=== PATIENT | male | born 1970 | race Caucasian/White ===

== ENCOUNTER 2024-02-13 23:20 | Emergency (ER) | payer OTHER, SELFPAY ==
[2024-02-13 23:22] VITALS: BP 160/96
--- NOTE | 2024-02-13 23:49 | ED.GENMED ---
History of Present Illness
General
Chief Complaint: Flank Pain
Source: patient
Time Seen by Provider: 02/13/24 23:35
History of Present Illness
History of Present Illness:
53-year-old male presents to the emergency room complaining of left flank pain. Pain began around 8 PM. It started suddenly without any provocation. Pain worsens at times in waves. Walking around seems to make it better temporarily. No fever.
No urinary frequency or dysuria. Patient did have a kidney stone on the same side a couple years ago. This does remind him of that episode.
Past History
Past History
ED Past Medical History: HTN, NIDDM and Hypothyroidism
ED Past Surgical History: Orthopedic
Social History
Tobacco: Non-smoker
Personal:
Living: with family
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
Phy Exam
Physical Exam
Physical Exam:
General: Awake, Alert, Oriented X3. No acute distress but does appear uncomfortable
Vitals: unremarkable
Head: Atraumatic
Eyes: Pupils equal, EOMI
Throat: Airway intact, no exudates
Neck: Trachea midline
Lungs: Clear and equal b/l
Heart: Regular rate, no murmurs
Abd: Soft, Nontender, No pulsatile mass
Back: Mild left CVA tenderness to percussion
Neuro: Nonfocal
Skin: Warm, dry, no rash
Extremities: pulses equal b/l, no edema
Course
Orders/Labs/Results
Orders:
Orders
02/13/24 23:47
Urinalysis Reflex To Culture Urgent
Date Specimen was Collected: 02/14/24
Time Specimen was Collected: 01:24
0.9% Sodium Chloride 500 ml [Nss] 500 ml IV BOLUS
Ketorolac [Toradol] 15 mg IV NOW STA
02/13/24 23:58
Basic Metabolic Panel Urgent
Complete Blood Count/With Diff Urgent
02/14/24 00:01
CT Abd/pel Without Iv Or Oral Urgent
Reason For Exam: left flank pain
02/14/24 01:27
Urine Microscopic Reflex Cult Urgent
Abnormal Lab Results
02/13/24 02/14/24
23:58 01:27
Abs Immat Gran (auto) 0.1 H 10^3/uL
(0-0.05)
Absolute Neuts (auto) 7.4 H 10^3/uL
(1.4-6.5)
Absolute Monos (auto) 0.8 H 10^3/uL
(0.1-0.6)
Immature Gran % 0.6 H %
(0-0.5)
Lymphocytes % 19.2 L %
(20.5-51.1)
Urine Ketones 2+ A
(Negative)
Ur Occult Blood Reflex Trace A
(Negative)
Urine RBC 3-6 A /HPF
(0-2)
Urine Bacteria (Reflex) Few A
(Negative)
02/13/24 23:58
02/13/24 23:58
Vital Signs
Initial and Last Documented VS:
Initial Vital Signs
Temp Pulse Resp BP Pulse Ox
97.8 F 80 24 160/96 98
02/13/24 23:22 02/13/24 23:22 02/13/24 23:22 02/13/24 23:22 02/13/24 23:22
Last Documented Vital Signs
Temp Pulse Resp BP Pulse Ox
97.8 F 88 17 131/71 98
02/13/24 23:22 02/14/24 00:59 02/14/24 00:59 02/14/24 00:59 02/14/24 00:59
MDM/Problems Addressed
Differential Diagnosis Includes:
UTI, kidney stone, muscle strain
MDM/Problems Addressed:
CT confirms the presence of a 4 mm stone. Urine shows no sign of infection. Patient improved with Toradol. Stable for discharge and follow-up with urology
*Radiology
Radiology exam reviewed: other (Vision report reviewed)
*Pulse Oximetry
Patient hypoxic: no
*Critical Care Note
Total Time (30-74mins, 75-104mins- exclusive of procedures): Not Applicable
ED Attending Note
-
Portions of this chart may have been created with voice recognition software.� Occasional wrong word or��sound alike� substitutions may have occurred due to the inherent limitations of voice recognition software.
Discharge Plan
Departure
Patient Disposition: Home (Routine Discharge)
Date of Disposition: 02/14/24
Time of Disposition: 01:50
Patient with high blood pressure during this ER visit?: No
Condition: Good
Discharge Problem:
Kidney stone on left side
Instructions: Kidney Stones (DC)
Prescriptions:
New
ondansetron 4 mg tablet,disintegrating
4 mg PO TID PRN (Reason: nausea and vomiting) Qty: 12 0RF
oxycodone 5 mg tablet
5 mg PO Q6H PRN (Reason: Pain) Qty: 12 0RF
No Action
multivitamin [Daily Multiple] 1 EACH tablet
1 ea PO DAILY
metformin 500 MG tablet
500 mg PO QPM
ramipril 2.5 MG capsule
2.5 mg PO QPM
Potassium Citrate
1,620 mg PO BID
ibuprofen 200 MG tablet
400 mg PO Q6H
levothyroxine 125 MCG tablet
125 mcg PO DAILY
Referrals:
Travis Reeves MD [Active] -
Flaca Robertson CRNP [Family Provider] -
Interventions
Interventions:
*Risk Screen - Suicide Last Done: 02/13/24 23:22
*General Assessment Last Done: 02/13/24 23:59
*Neglect/Abuse Screening Last Done: 02/13/24 23:22
QK-Hiqhew-Ledrtqayas Assessment Last Done: 02/13/24 23:59
ED-Male Genitourinary Assessment Last Done: 02/13/24 23:59
Discharge Date and Time
Print Language: BELARUSIAN
[2024-02-13 23:59] VITALS: BMI 33.2
[2024-02-14] MEDS: NSS 500 IV
[2024-02-14] MEDS: TORADOL 15 MG IV (00:01)
[2024-02-14 00:09] LABS: % Basophils 0.5 % (0-2); % Eosinophils 1.2 % (0-6); % Immature Granulocytes 0.6 % (0-0.5); % Lymphocytes 19.2 % (20.5-51.1); % Monocytes 7.4 % (1.7-9.3); % Neutrophils 71.1 % (42.2-75.2); Absolute Basophils 0.1 10^3/uL (0-0.2); Absolute Eosinophils 0.1 10^3/uL (0-0.7); Absolute Immature Granulocytes 0.1 10^3/uL (0-0.05); Absolute Monocytes 0.8 10^3/uL (0.1-0.6); Absolute Neutrophils 7.4 10^3/uL (1.4-6.5); Hematocrit 43.6 % (39.0-52.0); Hemoglobin 15.2 g/dL (13.0-18.0); Mean Corp Hgb Conc. 34.9 g/dL (33.0-37.0); Mean Corpuscular Hgb 28.7 pg (27.0-31.0); Mean Corpuscular Volume 82.4 fL (80.0-94.0); Mean Platelet Volume 8.8 fL (7.4-10.4); Nucleated Red Blood Cells % 0 % (-); Platelet Count 171 10^3/uL (130-400); Red Blood Cell Count 5.29 10^6/uL (4.70-6.10); Red Cell Dist. Width 13.5 % (11.5-14.5); White Blood Cell Count 10.4 10^3/uL (4.8-10.8)
[2024-02-14 00:23] LABS: Blood Urea Nitrogen 16 mg/dl (9-20); Calcium 9.9 mg/dl (8.4-10.2); Carbon Dioxide 22 mmol/L (22-30); Chloride 104 mmol/L (98-107); Estimated Creatinine Clearance 105 ml/min; Glucose 97 mg/dl (70-99); Potassium 4.1 mmol/L (3.5-5.1); Sodium 139 mmol/L (135-145); eGFR > 60.00
[2024-02-14 00:59] VITALS: BP 131/71
[2024-02-14 01:36] LABS: Urine Albumin Negative (Neg - Trace); Urine Bilirubin Negative (Negative); Urine Character Clear (Clear); Urine Color Yellow; Urine Glucose Negative (Negative); Urine Ketone 2+ (Negative); Urine Leukocyte Negative (Negative); Urine Nitrite Negative (Negative); Urine Occult Blood Trace (Negative); Urine Urobilinogen Negative (Neg - 1+)
[2024-02-14 01:46] LABS: Urine Bacteria Few (Negative); Urine Squamous Cell 0-2 /LPF (Few); Urine White Cell 0-2 /HPF (0-5)
== END 2024-02-14 02:03 | disposition home or self-care (01) ==
LOC: EMR 23:20
PROVIDERS: EMERGENCY PHYSICIAN Emergency Medicine; FAMILY PHYSICIAN Nurse Practitioner
DX: N20.0 Calculus of kidney (principal); I10 Essential (primary) hypertension; E11.9 Type 2 diabetes mellitus without complications; E03.9 Hypothyroidism, unspecified; Z87.442 Personal history of urinary calculi; Z79.84 Long term (current) use of oral hypoglycemic drugs; Z88.1 Allergy status to other antibiotic agents
CPT/HCPCS: 99284; 96374; 96361; 74176; 80048; 81003; 81015; 85025

== ENCOUNTER → 2024-03-23 06:41 | Outpatient (REF) | payer OTHER, SELFPAY | LOC: HWRAD 06:41 | PROVIDERS: ATTENDING PHYSICIAN Nurse Practitioner | DX: B19.10 Unspecified viral hepatitis B without hepatic coma (principal) | CPT/HCPCS: 76700 ==

== ENCOUNTER 2024-09-17 01:53 | Emergency (ER) | payer OTHER, SELFPAY ==
[2024-09-17 01:53] VITALS: BMI 33.0
[2024-09-17 01:57] VITALS: BP 172/114
[2024-09-17 02:19] VITALS: BP 156/113
[2024-09-17 02:47] LABS: % Basophils 0.7 % (0-2); % Eosinophils 1.9 % (0-6); % Immature Granulocytes 0.6 % (0-0.5); % Lymphocytes 41.4 % (20.5-51.1); % Neutrophils 46.4 % (42.2-75.2); Absolute Basophils 0.1 10^3/uL (0-0.2); Absolute Eosinophils 0.2 10^3/uL (0-0.7); Absolute Immature Granulocytes 0.1 10^3/uL (0-0.05); Absolute Lymphocytes 3.9 10^3/uL (1.2-3.4); Absolute Monocytes 0.9 10^3/uL (0.1-0.6); Absolute Neutrophils 4.4 10^3/uL (1.4-6.5); Hematocrit 49.7 % (39.0-52.0); Hemoglobin 16.6 g/dL (13.0-18.0); Mean Corp Hgb Conc. 33.4 g/dL (33.0-37.0); Mean Corpuscular Hgb 28.1 pg (27.0-31.0); Mean Corpuscular Volume 84.1 fL (80.0-94.0); Mean Platelet Volume 8.3 fL (7.4-10.4); Nucleated Red Blood Cells % 0 % (-); Platelet Count 240 10^3/uL (130-400); Red Blood Cell Count 5.91 10^6/uL (4.70-6.10); Red Cell Dist. Width 13.8 % (11.5-14.5); White Blood Cell Count 9.4 10^3/uL (4.8-10.8)
[2024-09-17] MEDS: TORADOL 30 MG IV (02:49)
[2024-09-17] MEDS: ZOFRAN 4 MG IV (02:49)
[2024-09-17 03:00] VITALS: BP 150/103
[2024-09-17] MEDS: DILAUDID 1 MG IV (03:01)
[2024-09-17] MEDS: NSS 1000 IV (03:04)
[2024-09-17 03:05] LABS: ALT (SGPT) 45 U/L (0-50); AST (SGOT) 34 U/L (17-59); Alkaline Phosphatase 89 U/L (38-126); Blood Urea Nitrogen 15 mg/dl (9-20); Calcium 9.5 mg/dl (8.4-10.2); Carbon Dioxide 29 mmol/L (22-30); Chloride 100 mmol/L (98-107); Estimated Creatinine Clearance 115 ml/min; Glucose 127 mg/dl (70-99); Lipase 164 U/L (23-300); Potassium 4.1 mmol/L (3.5-5.1); Sodium 142 mmol/L (135-145); Total Bilirubin 0.2 mg/dl (0.2-1.3); Total Protein 7.9 g/dl (6.3-8.2); eGFR > 60.00
--- NOTE | 2024-09-17 03:45 | ED.GENMED ---
History of Present Illness
General
Chief Complaint: Abdominal Pain
Source: patient
Exam Limitations: none
Time Seen by Provider: 09/17/24 02:58
Nursing documentation reviewed up to this point in time: agreed with
History of Present Illness
History of Present Illness:
This is a 54-year-old gentleman who has history of kidney stones, nxw-xobkvnq-pwibcfmta diabetes, hypothyroidism, hypertension who complains of abrupt onset of severe right upper quadrant pain that began just prior to arrival accompanied with
nausea, dry heaves. No history of similar episodes in the past.
He does have history of kidney stones but states current pain is quite different from previous episodes of kidney stones.
He admits to feeling restless. No aggravating or relieving factors.
He recently returned yesterday from a 5-day trip to [place]. Was feeling well during his trip, he did have 1 episode of loose stools yesterday but no recurrence. No fever nor chills.
Past History
Past History
ED Past Medical History: HTN, NIDDM, Hypothyroidism and Other (Kidney stones)
ED Past Surgical History: Orthopedic and Urological (vasetctomy)
Social History
Tobacco: Non-smoker
Alcohol: Occasional
Personal:
Living: with family
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
Family History
Family History: Other (Noncontributory)
Phy Exam
Physical Exam
Physical Exam:
GENERAL: 54-year-old gentleman appears his stated age, awake and alert, appears in moderate distress related to pain. Quite anxious, somewhat restless but cooperative. Holding his right upper quadrant.
EYE: anicteric
NECK: Supple, nontender, no meningismus, no significant adenopathy.
ENT: oral mucosa is moist. No rhinorrhea.
CARDIAC: Regular rate and rhythm. no murmur.
LUNGS: Clear breath sounds bilaterally, no acute respiratory distress, no wheezes/rales/rhonchi
ABDOMEN: Soft, nondistended, moderate tenderness right upper quadrant with mild guarding, no rebound or rigidity, no cvat. normoactive BS.
NEUROLOGICAL: Alert and oriented x3, no focal neuro deficits. Gait is branham and steady.
SKIN: Warm and mildly diaphoretic, normal color, skin intact. No rash.
MUSCULOSKELETAL: No C/C/E. peripheral pulses are full and equal b/l. No palpable tenderness.
PSYCH: Mildly anxious related to pain. Cooperative.
Course
Orders/Labs/Results
Orders:
Orders
09/17/24 02:29
Complete Blood Count/With Diff Urgent
Comprehensive Metabolic Panel Urgent
Lipase Urgent
09/17/24 02:38
Ondansetron Injectable [Zofran] 4 mg .ROUTE .STK-MED ONE
09/17/24 02:39
Ketorolac [Toradol] 30 mg .ROUTE .STK-MED ONE
09/17/24 02:47
Ondansetron Injectable [Zofran] 4 mg IV NOW STA
09/17/24 02:48
Ketorolac [Toradol] 30 mg IV NOW STA
09/17/24 02:59
HYDROmorphone [Dilaudid] 1 mg .ROUTE .STK-MED ONE
09/17/24 03:01
0.9% Sodium Chloride 1000 ml [Nss] 1,000 ml IV BOLUS
HYDROmorphone [Dilaudid] 1 mg IV NOW STA
HYDROmorphone [Dilaudid] 1 mg IV NOW STA
US Abdomen Limited Urgent
Reason For Exam: acute severe RUQ pain
Abnormal Lab Results
09/17/24
02:29
Abs Immat Gran (auto) 0.1 H 10^3/uL
(0-0.05)
Absolute Lymphs (auto) 3.9 H 10^3/uL
(1.2-3.4)
Absolute Monos (auto) 0.9 H 10^3/uL
(0.1-0.6)
Immature Gran % 0.6 H %
(0-0.5)
Glucose 127 H mg/dl
(70-99)
09/17/24 02:29
09/17/24 02:29
Vital Signs
Initial and Last Documented VS:
Initial Vital Signs
Temp Pulse Resp BP Pulse Ox
98.3 F 80 24 172/114 100
09/17/24 01:57 09/17/24 01:57 09/17/24 01:57 09/17/24 01:57 09/17/24 01:57
Last Documented Vital Signs
Temp Pulse Resp BP Pulse Ox
98.3 F 87 16 124/77 96
09/17/24 01:57 09/17/24 06:00 09/17/24 06:00 09/17/24 06:00 09/17/24 06:00
MDM/Problems Addressed
Differential Diagnosis Includes:
Concern for acute biliary colic/cholecystitis, pancreatitis, renal colic/ureteric stone, colitis/diverticulitis, focal bowel obstruction.
Thus far no improvement in pain after IV dose of Toradol. Nausea has improved after Zofran.
Will give IV Dilaudid for pain, initiate IV fluids.
Labs are pending.
Will plan for right upper quadrant ultrasound.
*Radiology
Radiology exam reviewed: radiology read reviewed
*Pulse Oximetry
Patient hypoxic: no
*Critical Care Note
Total Time (30-74mins, 75-104mins- exclusive of procedures): Not Applicable
Update Note
Update Note:
06:00
Patient is pain-free and comfortable after 1 IV dose of Dilaudid.
Labs are unremarkable.
Ultrasound shows cholelithiasis but no evidence of cholecystitis.
History and exam consistent with acute biliary colic.
Recommend strict low-fat diet.
Will refer to general surgery for follow-up.
Return precautions discussed.
ED Attending Note
-
Portions of this chart may have been created with voice recognition software.� Occasional wrong word or��sound alike� substitutions may have occurred due to the inherent limitations of voice recognition software.
Discharge Plan
Departure
Patient Disposition: Home (Routine Discharge)
Date of Disposition: 09/17/24
Time of Disposition: 06:17
Patient with high blood pressure during this ER visit?: No
Condition: Good
Discharge Problem:
acute biliary colic, Cholelithiases
Instructions: Gallstones (DC), Low-fat diet
Prescriptions:
No Action
multivitamin [Daily Multiple] 1 EACH tablet
1 ea PO DAILY
metformin 500 MG tablet
500 mg PO QPM
ramipril 2.5 MG capsule
2.5 mg PO QPM
Potassium Citrate
1,620 mg PO BID
ibuprofen 200 MG tablet
400 mg PO Q6H
levothyroxine 125 MCG tablet
125 mcg PO DAILY
ondansetron 4 mg tablet,disintegrating
4 mg PO TID PRN (Reason: nausea and vomiting) Qty: 12 0RF
oxycodone 5 mg tablet
5 mg PO Q6H PRN (Reason: Pain) Qty: 12 0RF
Referrals:
Rony Hendricks MD [Active] - Call in 1-3 days for appt
PRIVATE,PHYSICIAN [Family Provider] -
Interventions
Interventions:
*Risk Screen - Suicide Last Done: 09/17/24 01:57
*General Assessment Last Done: 09/17/24 03:07
*Neglect/Abuse Screening Last Done: 09/17/24 01:57
*ED COVID-19 Vaccine History Last Done: 09/17/24 03:07
FN-Acvygd-Nfvoybiyco Assessment Last Done: 09/17/24 03:07
Discharge Date and Time
Print Language: [place] R[place]
[2024-09-17 04:00] VITALS: BP 143/86
[2024-09-17 05:00] VITALS: BP 122/74
[2024-09-17 06:00] VITALS: BP 124/77
== END 2024-09-17 06:40 | disposition home or self-care (01) ==
LOC: EMR 01:53
PROVIDERS: EMERGENCY PHYSICIAN Emergency Medicine
DX: K80.20 Calculus of gallbladder without cholecystitis without obstruction (principal); I10 Essential (primary) hypertension; E11.9 Type 2 diabetes mellitus without complications; E03.9 Hypothyroidism, unspecified; Z79.84 Long term (current) use of oral hypoglycemic drugs; Z86.16 Personal history of COVID-19; Z87.442 Personal history of urinary calculi; Z88.1 Allergy status to other antibiotic agents
CPT/HCPCS: 99284; 96374; 96375 ×2; 96361; 76705; 80053; 83690; 85025

== ENCOUNTER 2024-12-08 06:47 | Emergency (ER) | payer OTHER, SELFPAY ==
[2024-12-08 06:50] VITALS: BP 143/97
--- NOTE | 2024-12-08 07:00 | ED.GENMED ---
History of Present Illness
General
Chief Complaint: Flank Pain
Time Seen by Provider: 12/08/24 06:59
History of Present Illness
History of Present Illness:
TIME OF INITIAL ENCOUNTER: 7 AM
HPI: Patient woke with left flank pain at 4:30 AM. He has a history of ureteral stones. He has required procedure for management of ureteral stones in the past. His last stone about a year ago. He has had no fevers. He has associated nausea.
This feels similar to prior ureteral stones.
EXAM:
GENERAL: Well appearing in no distress
HEENT: Moist oral mucosa
CARDIOVASCULAR: No murmurs, normal heart rate, regular rhythm, No chest wall tenderness
PULMONARY: No respiratory distress, breath sounds are clear and equal
ABDOMEN: Soft with no peritoneal signs, no tenderness, mild CVA tenderness
NEUROLOGIC: Excellent strength all extremities, no coordination deficits
PSYCHIATRIC: Appropriate mental status, normal insight and judgement
EXTREMITIES: Nontender, no edema, moves all extremities equally
SKIN: No rash, no lesions
NUMBER AND COMPLEXITY OF PROBLEMS ADDRESSED AT THE ENCOUNTER
� Chronic conditions affecting care: Diabetes, kidney stones, has had DVT
� Acute Exacerbation and/or Progression of Chronic Illness: This is an acute problem
� Differential Diagnosis includes: Ureteral stone, ureteral colic, hydronephrosis, pyelonephritis, musculoskeletal pain
AMOUNT AND/OR COMPLEXITY OF DATA TO BE REVIEWED AND ANALYZED
� I performed an independent evaluation of and my interpretation is:
EKG:
CT: I did question a ureteral stone at the distal left ureter which is small but Dr. Wilcox suspects that this is a phlebolith. He does have a 7 mm left renal parapelvic calculus at the lower pole
X-rays:
Laboratory Studies: CBC unremarkable, chemistries including renal function normal, 4+ blood in the urine, no evidence of infection
Other:
� Review of other/old records: I reviewed records, the patient was seen here with cholelithiasis in August and was found to have a left-sided kidney stone in January 2024
� Clinical information was obtained by an independent historian: None needed
� Prescriptions/Medications Considered but not given:
� Further testing considered but not performed:
RISK OF COMPLICATIONS AND/OR MORBIDITY OR MORTALITY OF PATIENT MANAGEMENT
� Social determinants of health affecting care: Lives at home
� Discussion with other providers: Discussed case with Dr. Wilcox regarding questionable ureteral stone
� Escalation of care including admission/observation vs risk of discharge considered: Will give Toradol, fluids, and Zofran and sent for CT.
ANY OTHER UPDATES:
On reassessment prior to discharge, the patient appears comfortable. He feels improved. Unclear etiology of patient's pain but he did have blood in the urine. He is known to Dr. Reeves and I suggest that he follows up with him.
Past History
Past History
ED Past Medical History: HTN, NIDDM, Hypothyroidism and Other (Kidney stones)
ED Past Surgical History: Orthopedic and Urological (vasetctomy)
Social History
Tobacco: Non-smoker
Alcohol: Occasional
Personal:
Living: with family
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
Family History
Family History: Other (Noncontributory)
Phy Exam
Physical Exam
Physical Exam:
See HPI
Course
Orders/Labs/Results
Orders:
Orders
12/08/24 07:03
CT Abd/pel Without Iv Or Oral Urgent
Comment:
Reason For Exam: L flank pain
0.9% Sodium Chloride 1000 ml [Nss] 1,000 ml IV BOLUS
Ketorolac [Toradol] 15 mg IV NOW STA
Ondansetron Injectable [Zofran] 4 mg IV NOW STA
12/08/24 07:09
Basic Metabolic Panel Urgent
Complete Blood Count/With Diff Urgent
Urinalysis Reflex To Culture Urgent
Date Specimen was Collected: 12/08/24
Time Specimen was Collected: 07:05
Urine Microscopic Reflex Cult Urgent
Abnormal Lab Results
12/08/24
07:09
Abs Immat Gran (auto) 0.1 H 10^3/uL
(0-0.05)
Absolute Monos (auto) 0.8 H 10^3/uL
(0.1-0.6)
Immature Gran % 0.7 H %
(0-0.5)
Glucose 118 H mg/dl
(70-99)
Ur Occult Blood Reflex 4+ A
(Negative)
Urine RBC 40-50 A /HPF
(0-2)
Urine Albumin (Reflex) 1+ A
(Neg - Trace)
12/08/24 07:09
12/08/24 07:09
Vital Signs
Initial and Last Documented VS:
Initial Vital Signs
Temp Pulse Resp BP Pulse Ox
36.8 C 79 18 143/97 100
12/08/24 06:50 12/08/24 06:50 12/08/24 06:50 12/08/24 06:50 12/08/24 06:50
Last Documented Vital Signs
Temp Pulse Resp BP Pulse Ox
36.8 C 79 16 102/72 98
12/08/24 06:50 12/08/24 06:50 12/08/24 08:00 12/08/24 10:01 12/08/24 09:59
*Critical Care Note
Total Time (30-74mins, 75-104mins- exclusive of procedures): Not Applicable
ED Attending Note
-
Portions of this chart may have been created with voice recognition software.� Occasional wrong word or��sound alike� substitutions may have occurred due to the inherent limitations of voice recognition software.
Discharge Plan
Departure
Patient Disposition: Home (Routine Discharge)
Date of Disposition: 12/08/24
Time of Disposition: 09:51
Patient with high blood pressure during this ER visit?: Yes
Discharge Problem:
Acute flank pain
Instructions: Flank Pain (DC)
Prescriptions:
No Action
ramipril 2.5 MG capsule
2.5 mg PO 1800
levothyroxine 125 MCG tablet
125 mcg PO DAILY
multivitamin Tablet
1 tab PO 1800
metformin 1,000 mg Tablet
1,000 mg PO 1800
bupropion HCl 300 mg Tablet Extended Release 24 Hr
300 mg PO DAILY
Mounjaro 10 mg/0.5 mL Pen Injector
10 mg SC MELGAR
Referrals:
Flaca Robertson CRNP [Family Provider] -
Activity Restrictions/Additional Instructions:
Your basic blood work is normal. Urinalysis shows blood which is oftentimes seen with kidney stones however there is no sign of kidney stone that is stuck in the ureter. We do see a 7 mm stone at the parapelvic region of the left kidney. However
there is no stone in the ureter. I recommend that you follow-up with Dr. Reeves. Return here if worse or other concerns. We did give you a dose of Toradol, Zofran and fluids.
Interventions
Interventions:
*Risk Screen - Suicide Last Done: 12/08/24 07:13
*General Assessment Last Done: 12/08/24 07:13
*Neglect/Abuse Screening Last Done: 12/08/24 07:13
*ED- Fall Risk Assessment Last Done: 12/08/24 07:13
*ED COVID-19 Vaccine History Last Done: 12/08/24 07:13
*Nursing Disposition Last Done: 12/08/24 10:10
ER-Gdceik-Chsxapclgc Assessment Last Done: 12/08/24 07:13
ED-Male Genitourinary Assessment Last Done: 12/08/24 07:13
Discharge Date and Time
Discharge Date/Time: 12/08/24 10:11
Print Language: UZBEK
[2024-12-08] MEDS: NSS 1000 IV (07:07)
[2024-12-08] MEDS: ZOFRAN 4 MG IV (07:07)
[2024-12-08] MEDS: TORADOL 15 MG IV (07:07)
[2024-12-08 07:11] VITALS: BMI 32.3
[2024-12-08 07:24] LABS: % Basophils 0.6 % (0-2); % Eosinophils 2.8 % (0-6); % Immature Granulocytes 0.7 % (0-0.5); % Lymphocytes 21.9 % (20.5-51.1); % Monocytes 8.6 % (1.7-9.3); % Neutrophils 65.4 % (42.2-75.2); Absolute Basophils 0.1 10^3/uL (0-0.2); Absolute Eosinophils 0.3 10^3/uL (0-0.7); Absolute Immature Granulocytes 0.1 10^3/uL (0-0.05); Absolute Lymphocytes 2.1 10^3/uL (1.2-3.4); Absolute Monocytes 0.8 10^3/uL (0.1-0.6); Absolute Neutrophils 6.4 10^3/uL (1.4-6.5); Hematocrit 47.2 % (39.0-52.0); Mean Corp Hgb Conc. 33.9 g/dL (33.0-37.0); Mean Corpuscular Hgb 28.9 pg (27.0-31.0); Mean Corpuscular Volume 85.4 fL (80.0-94.0); Mean Platelet Volume 8.2 fL (7.4-10.4); Nucleated Red Blood Cells % 0 % (-); Platelet Count 184 10^3/uL (130-400); Red Blood Cell Count 5.53 10^6/uL (4.70-6.10); Red Cell Dist. Width 14.3 % (11.5-14.5); White Blood Cell Count 9.8 10^3/uL (4.8-10.8)
[2024-12-08 07:37] LABS: Blood Urea Nitrogen 17 mg/dl (9-20); Calcium 9.3 mg/dl (8.4-10.2); Carbon Dioxide 24 mmol/L (22-30); Chloride 106 mmol/L (98-107); Estimated Creatinine Clearance 102 ml/min; Glucose 118 mg/dl (70-99); Potassium 4.2 mmol/L (3.5-5.1); Sodium 141 mmol/L (135-145); eGFR > 60.00
[2024-12-08 07:42] LABS: Urine Albumin 1+ (Neg - Trace); Urine Bilirubin Negative (Negative); Urine Character Clear (Clear); Urine Color Yellow; Urine Glucose Negative (Negative); Urine Ketone Negative (Negative); Urine Leukocyte Negative (Negative); Urine Nitrite Negative (Negative); Urine Occult Blood 4+ (Negative); Urine Specific Gravity 1.025 (<1.030); Urine Urobilinogen Negative (Neg - 1+)
[2024-12-08 08:46] LABS: Urine Mucus Many
[2024-12-08 08:48] LABS: Urine Amorphous Seen; Urine Granular Cast 0-2 /LPF (0); Urine Urothelial Cell 0-2 /LPF (FEW)
[2024-12-08 08:49] LABS: Urine Red Blood Cell 40-50 /HPF (0-2); Urine White Cell 0-2 /HPF (0-5)
[2024-12-08 09:12] VITALS: BP 105/65
[2024-12-08 10:01] VITALS: BP 102/72
== END 2024-12-08 10:11 | disposition home or self-care (01) ==
LOC: EMR 06:47
PROVIDERS: EMERGENCY PHYSICIAN Emergency Medicine; FAMILY PHYSICIAN Nurse Practitioner
DX: R10.9 Unspecified abdominal pain (principal); I10 Essential (primary) hypertension; E11.9 Type 2 diabetes mellitus without complications; Z87.442 Personal history of urinary calculi; Z86.718 Personal history of other venous thrombosis and embolism
CPT/HCPCS: 99285; 96374; 96375; 96361; 74176; 80048; 81003; 81015; 85025

== ENCOUNTER 2024-12-13 06:22 | Day surgery (SDC) | payer OTHER, SELFPAY ==
[2024-11-27 13:41] VITALS: BMI 33.1
[2024-12-13] VITALS (8 sets, daily range): BP systolic 123–144; BP diastolic 76–89; BMI 33.1
[2024-12-13 08:45] LABS: Glucose - Point of Care 97 mg/dl (70-99)
[2024-12-13] MEDS: TYLENOL 1000 MG PO (08:58)
[2024-12-13] MEDS: NORMOSOL-R/PLASMALYTE-A 1000 IV (08:58)
[2024-12-13 11:32] LABS: Glucose - Point of Care 141 mg/dl (70-99)
== END 2024-12-13 13:05 | disposition home or self-care (01) ==
LOC: SDS 06:22
PROVIDERS: ATTENDING PHYSICIAN Surgery; FAMILY PHYSICIAN Nurse Practitioner
DX: K80.10 Calculus of gallbladder with chronic cholecystitis without obstruction (principal); K66.0 Peritoneal adhesions (postprocedural) (postinfection); G47.33 Obstructive sleep apnea (adult) (pediatric)
CPT/HCPCS: 47563; 88304; 36415; 74300; 76000; 82962; 93005; A4300

== ENCOUNTER → 2025-06-05 15:28 | Outpatient (REF) | payer OTHER, SELFPAY | LOC: RAD 15:28 | PROVIDERS: ATTENDING PHYSICIAN Hospitalist | DX: R05.3 Chronic cough (principal) | CPT/HCPCS: 71046 ==